=== PATIENT | female | born 1955 | race Caucasian/White ===

== ENCOUNTER → 2017-06-26 07:20 | Outpatient (CLI) | payer MEDICARE | END | disposition home or self-care (01) | LOC: D.US 07:20 | DX: N28.1 Cyst of kidney, acquired (principal) ==

== ENCOUNTER → 2017-07-03 12:22 | Outpatient (CLI) | payer MEDICARE | END | disposition home or self-care (01) | LOC: D.CT 12:22 | DX: R93.5 Abnormal findings on diagnostic imaging of other abdominal regions, including retroperitoneum (principal) ==